=== PATIENT | female | born 1955 | race Caucasian/White ===

== ENCOUNTER → 2021-08-28 | Day surgery (SDC) | payer MEDICARE ==
[2021-08-24 14:38] LABS: BASOPHILS % 0.2 % (0.0-1.0); EOSINOPHILS % 0.2 % (0.0-6.0); HEMATOCRIT 40.7 % (34.2-44.1); HEMOGLOBIN 12.6 g/dL (12.0-16.0); LYMPHOCYTES # (AUTO) 2.4 (1.0-3.2); MEAN CORPUSCULAR HEMOGLOBIN 33.6 pg (28-32); MEAN CORPUSCULAR VOLUME 108.5 fL (81-99); MONOCYTES # (AUTO) 0.4 (0.2-0.8); MONOCYTES % 8.8 % (4.4-11.3); NEUTROPHILS # (AUTO) 1.9 (2.1-6.9); NEUTROPHILS % 39.6 % (38.7-80.0); PLATELET COUNT 299 x10e3/uL (140-360); RED BLOOD COUNT 3.75 x10e6/uL (3.6-5.1); RED CELL DISTRIBUTION WIDTH 12.8 % (11.7-14.4)
[~2021-08-28] MED LIST: CENTRUM ADULTS1 EACH PO; EPINEPHRINE 1 MG/ML 30ML VIAL ONE; FLUTICASONE P15.8 ML INH; HYDROCHLOROTHIA25 MG PO; LEVOTHYROXINE50 MCG PO; LIOTHYRONINE SO5 MCG PO; LISINOPRIL5 MG PO; NAMENDA5 MG PO; NEURONTIN400 MG PO; PRAVASTATIN SOD40 MG PO; SULFASALAZINE500 MG PO; TRINTELLIX10 MG PO
[2021-08-28 10:34] VITALS: BP 144/70
== END | disposition home or self-care (01) ==
LOC: OR 05:42 → EDSEX 10:00
PROVIDERS: ATTEND Orthopaedic Surgery
DX: M75.111 Incomplete rotator cuff tear or rupture of right shoulder, not specified as traumatic (principal); M75.41 Impingement syndrome of right shoulder; M75.51 Bursitis of right shoulder; M75.01 Adhesive capsulitis of right shoulder; I10 Essential (primary) hypertension; E03.9 Hypothyroidism, unspecified; F41.9 Anxiety disorder, unspecified; Z91.040 Latex allergy status; Z88.8 Allergy status to other drugs, medicaments and biological substances; Z01.810 Encounter for preprocedural cardiovascular examination; Z01.812 Encounter for preprocedural laboratory examination; Z01.818 Encounter for other preprocedural examination; Z20.822 Contact with and (suspected) exposure to COVID-19; Z79.899 Other long term (current) drug therapy
CPT/HCPCS: 0223U; 29826; 29827; 36415; 71046; 85025; 93005; C1713 ×2; J0690